=== PATIENT | female | born 1990 | race Two or more races ===

== ENCOUNTER 2017-12-08 16:00 | Observation (INO) | payer BC ==
[2017-12-08] MEDS ORDERED: PREN-153 OR (16:50)
[2017-12-08] MEDS ORDERED: BETAMETHASONE ACET (6MG/ML) 5ML VIAL ONE (16:52)
[2017-12-08] MEDS ORDERED: BETAMETHASONE ACET (6MG/ML) 5ML VIAL IM SCH (22:00)
[2017-12-09] MEDS ORDERED: PROG200C6 PO (17:32)
[2017-12-09] MEDS ORDERED: NIF10C PO (17:32)
== END 2017-12-08 17:30 | disposition home or self-care (01) | DRG 778 ==
LOC: LDRP 16:00
PROVIDERS: ADMIT Specialist; ATTEND Specialist
DX: O60.02 Preterm labor without delivery, second trimester (principal); Z3A.24 24 weeks gestation of pregnancy
CPT/HCPCS: 59025; 81002; G0378; J0702

== ENCOUNTER 2017-12-09 16:40 | Observation (INO) | payer SELFPAY ==
[~2017-12-09 16:40] MED LIST: PREN-153 OR
[2017-12-09] MEDS ORDERED: BETAMETHASONE ACET (6MG/ML) 5ML VIAL IM ONE (17:00)
[2017-12-09] MEDS ORDERED: PROG200C6 PO (17:32)
[2017-12-09] MEDS ORDERED: NIF10C PO (17:32)
== END 2017-12-09 17:15 | disposition home or self-care (01) | DRG 778 ==
LOC: LDRP 16:40
PROVIDERS: ADMIT Obstetrics & Gynecology; ATTEND Obstetrics & Gynecology
DX: O60.02 Preterm labor without delivery, second trimester (principal); Z3A.24 24 weeks gestation of pregnancy
CPT/HCPCS: 59025; 81002; 96372; G0378; J0702

== ENCOUNTER 2017-12-15 12:00 | Observation (INO) | payer BC ==
[~2017-12-15 12:00] MED LIST changes: +NIF10C PO; +PROG200C6 PO
== END 2017-12-15 13:40 | disposition home or self-care (01) | DRG 782 ==
LOC: LDRP 12:00
PROVIDERS: ADMIT Specialist; ATTEND Specialist
DX: O62.9 Abnormality of forces of labor, unspecified (principal); Z3A.25 25 weeks gestation of pregnancy
CPT/HCPCS: 59025; 81002; G0378

== ENCOUNTER 2017-12-20 15:25 | Observation (INO) | payer BC | END 2017-12-20 16:05 | disposition home or self-care (01) | DRG 781 | LOC: LDRP 15:25 | PROVIDERS: ADMIT Obstetrics & Gynecology; ATTEND Obstetrics & Gynecology | DX: O26.892 Other specified pregnancy related conditions, second trimester (principal); Z3A.26 26 weeks gestation of pregnancy | CPT/HCPCS: 59025; 81002; G0378 ==

== ENCOUNTER 2018-01-25 11:50 | Observation (INO) | payer BC ==
[2018-01-25] MEDS ORDERED: PROG100C4 PV (12:39)
== END 2018-01-25 12:35 | disposition home or self-care (01) | DRG 778 ==
LOC: EDBD → LDRP 11:50
PROVIDERS: ADMIT Obstetrics & Gynecology; ATTEND Obstetrics & Gynecology
DX: O60.03 Preterm labor without delivery, third trimester (principal); R26.89 Other abnormalities of gait and mobility; Z3A.31 31 weeks gestation of pregnancy
CPT/HCPCS: 59025; 81002; G0378

== ENCOUNTER 2018-02-15 09:50 | Observation (INO) | payer BC ==
[~2018-02-15] VITALS: Ht 154.9 cm; Wt 93.4 kg
[~2018-02-15 09:50] MED LIST changes: +PROG100C4 PV; -PROG200C6 PO
== END 2018-02-15 10:50 | disposition home or self-care (01) | DRG 778 ==
LOC: EDUNIT# 09:50 → LDRP 09:50
PROVIDERS: ADMIT Specialist; ATTEND Specialist
DX: O60.03 Preterm labor without delivery, third trimester (principal); Z3A.33 33 weeks gestation of pregnancy
CPT/HCPCS: 59025; 81002; G0378

== ENCOUNTER 2018-02-22 11:50 | Observation (INO) | payer BC | END 2018-02-22 12:45 | disposition home or self-care (01) | DRG 782 | LOC: LDRP 11:50 | PROVIDERS: ADMIT Obstetrics & Gynecology; ATTEND Obstetrics & Gynecology | DX: O26.873 Cervical shortening, third trimester (principal); O60.03 Preterm labor without delivery, third trimester; Z3A.34 34 weeks gestation of pregnancy | CPT/HCPCS: 59025; 81002; G0378 ==

== ENCOUNTER → 2018-03-08 | Outpatient (CLI) | payer BC ==
[2018-03-08 09:09] LABS: Basophils # (auto) 0 uL; Eosinophils # (auto) 0.1 uL; Hemoglobin 13.1 g/dL (12.2-16.2); Lymphocytes # (auto) 1.8 uL; Nucleated Red Blood Cells % 0.1 %
[2018-03-08 09:13] LABS: Basophils % (auto) 0.4 % (0.0-2.0); Lymphocytes % (auto) 16.5 % (10.0-50.0); Mean Corpuscular Hemoglobin 26.7 pg (28.0-32.0); Mean Corpuscular Hgb Conc. 33.5 g/dL (32.0-36.0); Mean Corpuscular Volume 79.8 fL (80.0-100.0); Monocytes # (auto) 0.5 uL; Monocytes % (auto) 4.7 % (0.0-12.0); Neutrophils # (auto) 8.3 uL; Neutrophils % (auto) 77.4 % (37.0-80.0); Platelet Count (auto) 198 10^3/uL (140-450); Red Blood Cells 4.89 10^6/uL (4.0-5.20); Red Cell Distribution Width 15.1 % (11.8-14.3); White Blood Cell 10.7 10^3/uL (4.4-10.8)
[2018-03-09 07:06] LABS: RPR Non Reactive (Non Reactive)
== END | disposition home or self-care (01) ==
LOC: LAB 08:04
PROVIDERS: ATTEND Obstetrics & Gynecology
DX: O23.599 Infection of other part of genital tract in pregnancy, unspecified trimester (principal); Z3A.00 Weeks of gestation of pregnancy not specified
CPT/HCPCS: 36415; 85025; 86592; 87081

== ENCOUNTER 2018-03-23 21:46 | Inpatient (IN) | payer BC ==
[~2018-03-23] VITALS: Ht 162.6 cm; Wt 97.5 kg
[2018-03-23] MEDS ORDERED: LACT. RINGERS/OXYTOCIN 20UNITS 1,000 ML IV SCH (21:56)
[2018-03-23] MEDS ORDERED: LIDOCAINE 2% (LOCAL ANESTH.) PF 5ml SDV ID ONE (22:00)
[2018-03-23] MEDS ORDERED: DERMOPLAST 60ML BOTTLE TOP PRN (22:00)
[2018-03-23] MEDS ORDERED: NALBUPHINE HCL 10 MG/1ml INJECTION IV PRN (22:00)
[2018-03-23] MEDS ORDERED: PHISODERM TOP SOLN 240ML BTL TOP PRN (22:00)
[2018-03-23] MEDS ORDERED: WITCH HAZEL-GLYCERIN PAD TOP PRN (22:00)
[2018-03-23] MEDS ORDERED: METHYLERGONOVINE MALEATE 0.2 MG/ML AMP IM PRN (22:00)
[2018-03-23 22:35] LABS: Eosinophils # (auto) 0 uL; Hemoglobin 12.7 g/dL (12.2-16.2); Lymphocytes # (auto) 1.8 uL; Mean Corpuscular Volume 79.6 fL (80.0-100.0); Monocytes # (auto) 0.4 uL; Monocytes % (auto) 4.1 % (0.0-12.0)
[2018-03-23 22:36] LABS: Urine Bacteria MOD /hpf (None Seen); Urine Blood Negative /uL (Negative); Urine Specific Gravity 1.012 (1.001-1.035); Urine WBC <1 /hpf (0 - 5)
[2018-03-23 22:37] LABS: Basophils # (auto) 0 uL; Basophils % (auto) 0.4 % (0.0-2.0); Eosinophils % (auto) 0.3 % (0.0-7.0); Hematocrit 37.8 % (36.0-46.0); Mean Corpuscular Hemoglobin 26.6 pg (28.0-32.0); Mean Corpuscular Hgb Conc. 33.5 g/dL (32.0-36.0); Neutrophils # (auto) 8.2 uL; Neutrophils % (auto) 78.2 % (37.0-80.0); Nucleated Red Blood Cells % 0.1 %; Platelet Count (auto) 215 10^3/uL (140-450); Red Blood Cells 4.75 10^6/uL (4.0-5.20); White Blood Cell 10.6 10^3/uL (4.4-10.8)
[2018-03-23 22:49] LABS: INR 0.87 (0.9-1.15); Partial Thromboplastin Time 29.2 sec (23.78-33.04); Prothrombin Time 9.4 sec (9.27-12.13)
[2018-03-23 22:50] LABS: Albumin 2.6 g/dL (3.4-5.0); BUN/Creatinine Ratio 17.9; Calcium 8.4 mg/dL (8.5-10.1); Potassium 3.8 mmol/L (3.5-5.1)
[2018-03-23 22:51] LABS: Alcohol, Urine < 3.0 mg/dL (0-5); Amphetamine Screen, Urine NEGATIVE (NEGATIVE); Barbiturate Scree,Urine NEGATIVE (NEGATIVE); Benzodiazephine Screen, Urine NEGATIVE (NEGATIVE); Cannabinoid Screen, Urine NEGATIVE (NEGATIVE); Cocaine Screen, Urine NEGATIVE (NEGATIVE); Opiate Scree,Urine NEGATIVE (NEGATIVE); Phencyclidine Screen, Urine NEGATIVE (NEGATIVE)
[2018-03-23 22:53] LABS: Bilirubin, Total 0.3 mg/dL (0.2-1.0); Total Protein 7.3 g/dL (6.4-8.2)
[2018-03-23] MEDS: LACTATED RINGER'S 1,000 ML IV SCH (23:01)
[2018-03-24] MEDS: LACTATED RINGER'S 1,000 ML IV SCH (02:42)
[2018-03-24] MEDS ORDERED: NALOXONE HCL 0.4 MG/ML VIAL IV ONE (06:00)
[2018-03-24] MEDS ORDERED: fentaNYL W ROPIVACAINE 150 ML EPI SCH (06:00)
[2018-03-24] MEDS ORDERED: LIDOCAINE HCL 2 %PF INJ 10ML AMP IJ ONE ×2 (06:00→06:30)
[2018-03-24] MEDS ORDERED: ePHEDrine SULFATE 50 MG/ML AMP IV ONE (06:00)
[2018-03-24] MEDS ORDERED: fentaNYL CITRATE 100 MCG/2 ML VL IV ONE (06:00)
[2018-03-24] MEDS ORDERED: fentaNYL W ROPIVACAINE 150 ML EPI ONE (06:29)
[2018-03-24] MEDS ORDERED: ePHEDrine SULFATE 50 MG/ML AMP ONE (06:30)
[2018-03-24] MEDS: ONDANSETRON HCL 4 MG/2 ML VIAL IV PRN ×2 (08:40→13:37)
[2018-03-24] MEDS ORDERED: ACETAMINOPHEN 325 MG TAB PO PRN (13:45)
[2018-03-24 14:50] VITALS: BP 114/55
[2018-03-24 15:30] VITALS: BP 118/58
[2018-03-24] MEDS: IBUPROFEN 600 MG TAB PO PRN (17:40)
[2018-03-24 19:20] VITALS: BP 121/72
[2018-03-24 23:00] VITALS: BP 111/56
[2018-03-25 03:15] VITALS: BP 99/59
[2018-03-25] MEDS: IBUPROFEN 600 MG TAB PO PRN (03:42)
[2018-03-25 06:05] LABS: RPR Non Reactive (Non Reactive)
[2018-03-25 06:59] VITALS: BP 121/72
[2018-03-25 10:50] VITALS: BP 114/53
== END 2018-03-25 13:50 | disposition home or self-care (01) | DRG 775 ==
LOC: LDRP 21:46
PROVIDERS: ADMIT Obstetrics & Gynecology; ATTEND Obstetrics & Gynecology
PROC: 3E0P7VZ Introduction of Hormone into Female Reproductive, Via Natural or Artificial Opening (ICD-10-PCS; 2018-03-23)
PROC: 10E0XZZ Delivery of Products of Conception, External Approach (ICD-10-PCS; principal; 2018-03-24)
PROC: 10907ZC Drainage of Amniotic Fluid, Therapeutic from Products of Conception, Via Natural or Artificial Opening (ICD-10-PCS; 2018-03-24)
PROC: 3E0R3BZ Introduction of Anesthetic Agent into Spinal Canal, Percutaneous Approach (ICD-10-PCS; 2018-03-24)
PROC: 00HU33Z Insertion of Infusion Device into Spinal Canal, Percutaneous Approach (ICD-10-PCS; 2018-03-24)
DX: O69.81X0 Labor and delivery complicated by cord around neck, without compression, not applicable or unspecified (principal); Z37.0 Single live birth; Z3A.39 39 weeks gestation of pregnancy
CPT/HCPCS: 36415; 51702; 59025; 59409; 62282; 80053; 80307; 81001; 85025; 85610; 85730; 86592; 96365; 96366; 96372; 96374; A6257; J2001; J2405; J2590; J3010

== ENCOUNTER 2023-08-05 12:16 | Emergency (ER) | payer BC, MEDICAID ==
[~2023-08-05] VITALS: Ht 162.6 cm; Wt 101.5 kg
[~2023-08-05 12:16] MED LIST changes: -NIF10C PO; +PREN-145 PO; -PREN-153 OR; +PREN1TAB71 OR; -PROG100C4 PV
[2023-08-05 14:06] VITALS: BP 142/83; PULSE 106; RESP 18; TEMP 98; O2SAT 95
[2023-08-05] MEDS ORDERED: AZIT500T66 PO (14:24)
[2023-08-05] MEDS ORDERED: PROM1SOL4 PO (14:24)
== END 2023-08-05 14:32 | disposition home or self-care (01) ==
LOC: ER 12:16
DX: J20.9 Acute bronchitis, unspecified (principal)
CPT/HCPCS: 71045